=== PATIENT | female | born 2000 | race Caucasian/White ===

== ENCOUNTER 2023-09-03 12:24 | Emergency (ER) | payer OTHER, BC ==
--- NOTE | 2023-09-03 12:28 | ED ---
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 She had already administered the insulin and states that the needle bent back when trying to recap it. Does not believe that the patient has any history of communicable illnesses. (Bea Massey) - Related Data Allergies Allergy/AdvReac Type Severity Reaction Status Date / Time nickel Allergy Rash/Hives Verified 09/03/23 12:38 Review of Systems ROS Other: All systems not noted in ROS Statement are negative. <Siobhan Walker - Last Filed: 09/03/23 12:27> ROS Other: All systems not noted in ROS Statement are negative. <Bea Massey - Last Filed: 09/03/23 14:35> ROS Statement: Those systems with pertinent positive or pertinent negative responses have been documented in the HPI. General Exam <Siobhan Walker - Last Filed: 09/03/23 12:27> Limitations: no limitations General appearance: alert, in no apparent distress Head exam: Present: atraumatic, normocephalic, normal inspection Respiratory exam: Present: normal lung sounds bilaterally. Absent: respiratory distress, wheezes, rales, rhonchi, stridor Cardiovascular Exam: Present: regular rate, normal rhythm, normal heart sounds. Absent: systolic murmur, diastolic murmur, rubs, gallop, clicks Extremities exam: Present: other (Small pinpoint region to the finger pad of the left thumb consistent with recent needlestick injury. No active bleeding.) Neurological exam: Present: alert, oriented X3, CN II-XII intact Psychiatric exam: Present: normal affect, normal mood Skin exam: Present: warm, dry, intact, normal color. Absent: rash <Bea Massey - Last Filed: 09/03/23 14:35> - General Exam Comments Initial Comments: Visual Physical Exam Vital signs reviewed General: Well-appearing, nontoxic, no acute distress. Head: Normocephalic, atraumatic Eyes: PERRLA, EOMI ENT: Airway patent Chest: Nonlabored breathing Skin: No visual rash, normal skin tone Neuro: Alert and oriented 3 Musculoskeletal: No gross abnormalities I performed the quick note portion of this exam, verbal signature Siobhan Walker PA-C (Siobhan Walker) Course Vital Signs 09/03/23 12:33 Temperature 98.7 F Pulse Rate 95 Respiratory 18 Rate Blood Pressure 128/85 O2 Sat by Pulse 97 Oximetry Medical Decision Making <Bea Massey - Last Filed: 09/03/23 14:35> - Medical Decision Making This is a 23-year-old female who presents to the emergency department for a needlestick injury. Was pt. sent in by a medical professional or institution? @ -[facility] Did you speak to anyone other than the patient for history? @ -No Did you review nursing and triage notes? @ -Yes, and I agree, it is accurate with regards to the patient's symptoms. Were old charts reviewed? @ -No Differential Diagnosis? @ -Not applicable EKG interpreted by me (3pts min.)? @ -Not obtained X-rays interpreted by me (1pt min.)? @ -Not obtained CT interpreted by me (1pt min.)? @ -Not obtained U/S interpreted by me (1pt. min.)? @ -Not obtained What testing was considered but not performed? (CT, X-rays, U/S, labs)? Why? @ -None What meds were considered but not given? Why? @ -None Did you discuss the management of the patient with other professionals? @ -No Did you reconcile home meds? @ -No Was smoking cessation discussed for >3mins.? @ -No Was critical care preformed (if so, how long)? @ -No Were there social determinants of health that impacted care today? How? (Homelessness, low income, unemployed, alcoholism, drug addiction, transportation, low edu. Level, literacy, decrease access to med. care, senior living, rehab)? @ -No Was there de-escalation of care discussed even if they declined? (Discuss DNR or withdrawal of care, Hospice)? @ -No What co-morbidities impacted this encounter? (DM, HTN, Smoking, COPD, CAD, Cancer, CVA, Hep., AIDS, mental health diagnosis, sleep apnea, morbid obesity)? @ -None Was patient admitted / discharged? @ -Discharged. Patient's tetanus vaccine is already up-to-date. The required paperwork and testing were obtained and the patient was discharged home in stable condition. Undiagnosed new problem with uncertain prognosis? @ -None Drug Therapy requiring intensive monitoring for toxicity (Heparin, Nitro, I nsulin, Cardizem)? @ -None Were any procedures done? @ -None Diagnosis/symptom? @ -Needlestick injury Acute, or Chronic, or Acute on Chronic? @ -Acute Uncomplicated (without systemic symptoms) or Complicated (systemic symptoms)? @ -Uncomplicated Side effects of treatment? @ -None Exacerbation, Progression, or Severe Exacerbation] @ -Not applicable Poses a threat to life or bodily function? @ -No Return precautions reviewed in depth, the patient is instructed to return to the emergency department with any new, worsening, or concerning symptoms. Patient verbalized understanding. This case was discussed in detail with the attending ED physician, Dr. Marie. Presentation, findings, and treatment plan discussed in detail as well. (Bea Massey) Disposition <Siobhan Walker - Last Filed: 09/03/23 12:27> Is patient prescribed a controlled substance at d/c from ED?: No <Bea Massey - Last Filed: 09/03/23 14:35> Clinical Impression: Needle stick injury of finger Disposition: HOME SELF-CARE Instructions (If sedation given, give patient instructions): Body Substance Exposure (ED) Additional Instructions: Return to the emergency department with any new, worsening, or concerning symptoms. Follow up with your primary care provider in 1-2 days. Referrals: Hilda Rothman MD [Primary Care Provider] - 1-2 days
[2023-09-03 12:57] VITALS: BP 128/85; PULSE 95; RESP 18; TEMP 98.7
[2023-09-04 03:47] LABS: Hepatitis C IgG Antibody Nonreactive
[2023-09-04 04:21] LABS: HIV 2 AB Non-Reactive (Non-Reactive); HIV AB P24 Non-Reactive (Non-Reactive); HIV P24 AG Non-Reactive (Non-Reactive)
== END 2023-09-03 13:44 | disposition home or self-care (01) ==
LOC: EC 12:24
DX: S61.032A Puncture wound without foreign body of left thumb without damage to nail, initial encounter (principal); Z88.8 Allergy status to other drugs, medicaments and biological substances; W46.0XXA Contact with hypodermic needle, initial encounter
CPT/HCPCS: 36415; 86706; 86803; 87390; 99282